=== PATIENT | female | born 1990 | race African-American/Black ===

== ENCOUNTER 2022-12-21 11:57 | Inpatient (IN) | payer OTHER ==
[~2022-12-21] VITALS: Ht 167.6 cm; Wt 77.3 kg
[2022-12-21] MEDS: NICOTINE 21MG/24HR 1 EA TRANSDERMAL TD SCH (09:00)
[~2022-12-21 11:57] MED LIST: FLUoxetine 20MG CAP PO SCH
[2022-12-21 12:34] LABS: HEMATOCRIT 40.4 % (36.0-47.0); HEMOGLOBIN 12.9 g/dl (12.0-15.5); MEAN CORPUSCULAR HEMOGLOBIN 30.7 pg (27.0-33.0); MEAN CORPUSCULAR HGB CONC 31.9 g/dl (32.0-36.5); MEAN CORPUSCULAR VOLUME 96.2 fl (80.0-96.0); PLATELET COUNT, AUTOMATED 246 10^3/uL (150-450); WHITE BLOOD COUNT 4.8 10^3/uL (4.0-10.0)
[2022-12-21 13:03] LABS: AMPHETAMINES LEVEL URINE NEGATIVE (NEGATIVE); BARBITURATES URINE NEGATIVE (NEGATIVE); BENZODIAZEPINES URINE NEGATIVE (NEGATIVE); CANNABINOIDS URINE NEGATIVE (NEGATIVE); COCAINE METABOLITE URINE NEGATIVE (NEGATIVE); ETHYL ALCOHOL (ETHANOL) 0.005 % (0.000-0.010); METHADONE URINE NEGATIVE (NEGATIVE); OPIATES URINE NEGATIVE (NEGATIVE); PHENCYCLIDINE URINE NEGATIVE (NEGATIVE)
[2022-12-21 13:04] LABS: ACETAMINOPHEN LEVEL < 2.0 UG/ML (10.0-20.0)
[2022-12-21 13:05] LABS: ALBUMIN 4.1 G/DL (3.2-5.2); ALKALINE PHOSPHATASE 73 U/L (46-116); ALT/SGPT 26 U/L (7.0-40); AST/SGOT 16 U/L (<34); BILIRUBIN,DIRECT 0.1 MG/DL (<0.4); BILIRUBIN,TOTAL 0.5 MG/DL (0.3-1.2); BLOOD UREA NITROGEN 10 MG/DL (9-23); CALCIUM LEVEL 9.3 MG/DL (8.5-10.1); CARBON DIOXIDE LEVEL 29 MMOL/L (20-31); CHLORIDE LEVEL 103 MMOL/L (98-107); CREATININE FOR GFR 0.68 MG/DL (0.55-1.30); GLOMERULAR FILTRATION RATE > 60.0 (>60); GLUCOSE, FASTING 70 MG/DL (60-100); POTASSIUM SERUM 4.3 MMOL/L (3.5-5.1); SALICYLATE LEVEL < 3.0 MG/DL (<30); SODIUM LEVEL 137 MMOL/L (136-145); TOTAL PROTEIN 7.7 G/DL (5.7-8.2)
[2022-12-21 13:08] LABS: HCG, SERUM QUALITATIVE NEGATIVE (NEGATIVE)
[2022-12-21 13:09] LABS: THYROID STIMULATING HORMONE 5.519 uIU/ML (0.55-4.78)
[2022-12-21] MEDS ORDERED: NAPROXEN 250 MG TAB PO PRN (14:20)
[2022-12-21] MEDS ORDERED: ACETAMINOPHEN TAB 650MG DOSE (2X325MG) PO PRN (14:20)
[2022-12-21] MEDS ORDERED: MAALOX 30 ML SUSP *UDC PO PRN (14:20)
[2022-12-21] MEDS ORDERED: diphenhydrAMINE 25MG CAP PO PRN (14:20)
[2022-12-21] MEDS ORDERED: traZODone 50 MG TAB PO PRN (14:20)
[2022-12-21] MEDS ORDERED: MOM 30ML SUSPENSION UDC PO PRN (14:20)
[2022-12-21] MEDS ORDERED: MULT-90 PO (15:24)
[2022-12-21] MEDS ORDERED: D 50CAP2 PO (15:24)
[2022-12-21] MEDS ORDERED: VITA250T18 PO (15:24)
[2022-12-21] MEDS ORDERED: NAPR-885 PO (15:24)
[2022-12-21] MEDS ORDERED: FLUO40CA PO (15:24)
[2022-12-21] MEDS ORDERED: HOME MED LIST COMPLETE! XX SCH (15:25)
[2022-12-21 16:01] VITALS: BP 133/81
[2022-12-22 07:05] VITALS: BP 133/71
[2022-12-22] MEDS: NICOTINE 21MG/24HR 1 EA TRANSDERMAL TD SCH (09:00)
[2022-12-22] MEDS: VITAMIN D 1,000 INTERNATIONAL UNITS TABLET PO SCH (09:00)
[2022-12-22] MEDS: MULTIVITAMINS/MINERALS THERAP 1 TAB PO SCH (09:00)
[2022-12-22] MEDS: FLUoxetine 20MG CAP PO SCH (09:47)
[2022-12-22] MEDS ORDERED: DOCUSATE SODIUM 100MG CAPSULE PO PRN (14:00)
[2022-12-22 17:16] LABS: FREE T4 1.08 NG/DL (0.89-1.76); THYROID STIMULATING HORMONE 3.126 uIU/ML (0.55-4.78)
[2022-12-22 17:59] VITALS: BP 150/86
[2022-12-23 06:23] VITALS: BP 135/78
[2022-12-23] MEDS: FLUoxetine 20MG CAP PO SCH (08:07)
[2022-12-23] MEDS: NICOTINE 21MG/24HR 1 EA TRANSDERMAL TD SCH (08:09)
[2022-12-23] MEDS: VITAMIN D 1,000 INTERNATIONAL UNITS TABLET PO SCH ×2 (08:09→12:10)
[2022-12-23] MEDS: MULTIVITAMINS/MINERALS THERAP 1 TAB PO SCH ×2 (08:09→12:10)
[2022-12-23 18:00] VITALS: BP 128/83
[2022-12-24 06:03] VITALS: BP 132/77
[2022-12-24] MEDS: MULTIVITAMINS/MINERALS THERAP 1 TAB PO SCH (08:19)
[2022-12-24] MEDS: FLUoxetine 20MG CAP PO SCH (08:20)
[2022-12-24] MEDS: NICOTINE 21MG/24HR 1 EA TRANSDERMAL TD SCH (08:23)
[2022-12-24] MEDS: VITAMIN D 1,000 INTERNATIONAL UNITS TABLET PO SCH (08:23)
[2022-12-24] MEDS: BENZONATATE 100MG CAPSULE PO PRN (16:40)
[2022-12-24 17:49] VITALS: BP 140/86
[2022-12-25] MEDS: BENZONATATE 100MG CAPSULE PO PRN ×3 (00:28→17:52)
[2022-12-25 05:59] VITALS: BP 113/65
[2022-12-25] MEDS: VITAMIN D 1,000 INTERNATIONAL UNITS TABLET PO SCH (08:01)
[2022-12-25] MEDS: FLUoxetine 20MG CAP PO SCH (08:02)
[2022-12-25] MEDS: MULTIVITAMINS/MINERALS THERAP 1 TAB PO SCH (08:02)
[2022-12-25] MEDS: NICOTINE 21MG/24HR 1 EA TRANSDERMAL TD SCH (08:06)
[2022-12-25 16:15] VITALS: BP 132/71
[2022-12-26 05:55] VITALS: BP 121/69
[2022-12-26] MEDS: NICOTINE 21MG/24HR 1 EA TRANSDERMAL TD SCH (09:00)
[2022-12-26] MEDS: VITAMIN D 1,000 INTERNATIONAL UNITS TABLET PO SCH (09:01)
[2022-12-26] MEDS: FLUoxetine 20MG CAP PO SCH (09:02)
[2022-12-26] MEDS: MULTIVITAMINS/MINERALS THERAP 1 TAB PO SCH (09:02)
[2022-12-26] MEDS: BENZONATATE 100MG CAPSULE PO PRN (09:02)
[2022-12-26] MEDS ORDERED: COLA100C5 PO (09:33)
[2022-12-26] MEDS ORDERED: FLUO20CA22 PO (09:33)
[2022-12-26] MEDS ORDERED: TRAZ-252 PO (09:33)
== END 2022-12-26 10:57 | disposition home or self-care (01) | DRG 881 ==
LOC: M ED 11:57 → M ED INP 14:17 → M PSY 15:54
PROVIDERS: ADMIT Psychiatry & Neurology Psychiatry; ATTEND Psychiatry & Neurology Psychiatry
DX: F32.9 Major depressive disorder, single episode, unspecified (principal); R45.851 Suicidal ideations; R94.6 Abnormal results of thyroid function studies; E55.9 Vitamin D deficiency, unspecified; K59.00 Constipation, unspecified; Z83.3 Family history of diabetes mellitus; Z79.899 Other long term (current) drug therapy; Z91.018 Allergy to other foods; Z91.048 Other nonmedicinal substance allergy status; Z20.822 Contact with and (suspected) exposure to COVID-19

== ENCOUNTER 2023-03-15 11:44 | Emergency (ER) | payer OTHER ==
[~2023-03-15] VITALS: Ht 167.6 cm; Wt 91.8 kg
[2023-03-15 11:44] VITALS: BP 138/74; TEMP 98.1; O2SAT 98
[~2023-03-15 11:44] MED LIST changes: +COLA100C5 PO; +D 50CAP2 PO; +FLUO20CA22 PO; +FLUO40CA PO; -FLUoxetine 20MG CAP PO SCH; +MULT-90 PO; +NAPR-885 PO; +TRAZ-252 PO; +VITA250T18 PO
== END 2023-03-15 15:07 | disposition left against medical advice (07) ==
LOC: M ED 11:44
DX: R07.89 Other chest pain (principal); Z53.21 Procedure and treatment not carried out due to patient leaving prior to being seen by health care provider

== ENCOUNTER 2023-09-20 01:24 | Inpatient (IN) | payer OTHER ==
[2023-09-20] VITALS (58 sets, daily range): BP systolic 97–144; BP diastolic 47–75; O2SAT 97–99
[~2023-09-20] VITALS: Ht 167.6 cm; Wt 118.0 kg
[2023-09-20] MEDS ORDERED: LACTATED RINGER'S 1000 ML IV STA (01:33)
[2023-09-20] MEDS ORDERED: TRANEXAMIC ACID INJection 1,000 MG in NS 100 ML IV PRN (01:35)
[2023-09-20] MEDS ORDERED: OXYTOCIN DRIP 30 UNITS in IV 1 EA IV SCH (01:35)
[2023-09-20] MEDS ORDERED: OXYTOCIN INJ 10UNITS/ML 1ML VIAL IM PRN (01:35)
[2023-09-20] MEDS ORDERED: OXYTOCIN DRIP 30 UNITS in IV 1 EA IV PRN ×6 (01:35)
[2023-09-20] MEDS ORDERED: OXYTOCIN INJ 10UNITS/ML 1ML VIAL IV PRN (01:35)
[2023-09-20] MEDS ORDERED: CARBOPROST TROMETHAMINE 250 MCG/ML AMP IM PRN (01:35)
[2023-09-20] MEDS ORDERED: METHYLERGONOVINE MALEATE 0.2MG/ML 1ML VIAL IM PRN (01:35)
[2023-09-20] MEDS ORDERED: LIDOCAINE 1% MDV 20ML VIAL INFIL PRN (01:35)
[2023-09-20] MEDS ORDERED: PRENTAB9 PO (01:42)
[2023-09-20] MEDS ORDERED: HOME MED LIST COMPLETE! XX SCH (01:45)
[2023-09-20 01:53] LABS: HEMOGLOBIN 12.3 g/dl (12.0-15.5); MEAN CORPUSCULAR HEMOGLOBIN 32.4 pg (27.0-33.0); MEAN CORPUSCULAR HGB CONC 34.2 g/dl (32.0-36.5); MEAN CORPUSCULAR VOLUME 94.7 fl (80.0-96.0); PLATELET COUNT, AUTOMATED 150 10^3/uL (150-450); WHITE BLOOD COUNT 7.1 10^3/uL (4.0-10.0)
[2023-09-20] MEDS ORDERED: PENICILLIN G POTASSIUM 5 MU IV 5 MU in D5W MINI-BAG PLUS 100 ML IV STA (01:57)
[2023-09-20] MEDS ORDERED: NALOXONE INJ 0.4MG/1ML VIAL IV PRN (02:30)
[2023-09-20] MEDS ORDERED: diphenhydrAMINE 50MG/ML VIAL IV PRN (02:30)
[2023-09-20] MEDS ORDERED: LR 500 ML IV PRN (02:30)
[2023-09-20] MEDS ORDERED: EPIDURAL/PCA KEYS XX PRN (02:30)
[2023-09-20] MEDS ORDERED: ONDANSETRON 4MG 2ML VIAL IV PRN (02:30)
[2023-09-20] MEDS: LR 1,000 ML IV SCH ×4 (02:36→09:35)
[2023-09-20] MEDS: FENTANYL/ROPIVACAINE/NACL BAG 100 ML EPIDURAL SCH ×2 (03:19→10:52)
[2023-09-20] MEDS: ePHEDrine SULFATE 25 MG/5 ML(5MG/ML) SYRINGE IVP PRN ×3 (04:20→04:34)
[2023-09-20] MEDS: PEN G POT 3,000,000 UNIT/50 ML 3,000,000 UNIT in IV 1 EA IV SCH ×3 (06:17→14:00)
[2023-09-20] MEDS ORDERED: CALCIUM CARBONATE 500 MG CHEW U/D PO ONE (07:25)
[2023-09-20] MEDS ORDERED: IBUPROFEN 600MG TAB PO PRN (12:40)
[2023-09-20] MEDS ORDERED: METHYLERGONOVINE MALEATE 0.2 MG TAB PO PRN (12:40)
[2023-09-20] MEDS ORDERED: ACETAMINOPHEN TAB 650MG DOSE (2X325MG) PO PRN (12:40)
[2023-09-20] MEDS ORDERED: DIBUCAINE 1% OINTMENT 30GM TOP PRN (12:40)
[2023-09-20] MEDS: IBUPROFEN 800 MG TAB PO PRN (15:18)
[2023-09-20] MEDS: ACETAMINOPHEN 500 MG TAB PO PRN (16:15)
[2023-09-20] MEDS: DOCUSATE SODIUM 100MG CAPSULE PO SCH (21:18)
[2023-09-21] MEDS: ACETAMINOPHEN 500 MG TAB PO PRN (02:31)
[2023-09-21] MEDS: SIMETHICONE 80MG CHEW TAB PO PRN ×2 (02:46→08:24)
[2023-09-21] MEDS: IBUPROFEN 800 MG TAB PO PRN (05:17)
[2023-09-21 06:00] VITALS: BP 110/70; O2SAT 98
[2023-09-21] MEDS: DOCUSATE SODIUM 100MG CAPSULE PO SCH (07:58)
[2023-09-21] MEDS ORDERED: PRENATAL VITAMINS CHEWABLE TABLET PO SCH (09:00)
== END 2023-09-21 13:56 | disposition home or self-care (01) | DRG 807 ==
LOC: M LDI 01:24 → M OBS 15:04
PROVIDERS: ADMIT Obstetrics & Gynecology; ATTEND Advanced Practice Midwife
PROC: 10E0XZZ Delivery of Products of Conception, External Approach (ICD-10-PCS; principal; 2023-09-20)
PROC: 10907ZC Drainage of Amniotic Fluid, Therapeutic from Products of Conception, Via Natural or Artificial Opening (ICD-10-PCS; 2023-09-20)
DX: O34.219 Maternal care for unspecified type scar from previous cesarean delivery (principal); Z37.0 Single live birth; Z3A.38 38 weeks gestation of pregnancy; O99.824 Streptococcus B carrier state complicating childbirth; O76 Abnormality in fetal heart rate and rhythm complicating labor and delivery; O40.3XX0 Polyhydramnios, third trimester, not applicable or unspecified; O66.0 Obstructed labor due to shoulder dystocia; O70.1 Second degree perineal laceration during delivery